=== PATIENT | female | born 1965 | race Caucasian/White ===

== ENCOUNTER 2018-07-01 14:12 | Emergency (ER) | payer BC, SELFPAY ==
[2018-07-01] VITALS (34 sets, daily range): BP systolic 71–133; BP diastolic 34–82; PULSE 68–86; RESP 11–29; TEMP 36.7; O2SAT 96–100
--- NOTE | 2018-07-01 14:37 | W.ED.GENAD ---
Discharge Plan Disposition Patient Disposition: HOME Condition: Stable Discharge Details Chief Complaint: Chest Pain Clinical Impression: Chest pain Primary Care Provider: Jose Toussaint ED Provider: Pietro Sommer Home Meds and New Rx's Prescriptions: Continued cyanocobalamin (vitamin B-12) [Vitamin B-12] 250 mcg Tablet 250 mcg PO DAILY RF: 0 zolpidem [Ambien] 10 mg Tablet 10 mg PO HS RF: 0 vitamin E 400 unit Capsule 400 unit PO DAILY RF: 0 cholecalciferol (vitamin D3) [Vitamin D3] 400 unit Capsule 400 unit PO DAILY RF: 0 omeprazole 20 mg Tablet,Delayed Release (Dr/Ec) 20 mg PO DAILY RF: 0 Discharge Instructions Instructions: Chest Pain (ED) Additional Instructions: your lab work here, ekg and chest cat scan did not show any concerning findings. Follow up with your primary care provider within a week and discuss having stress testing if you have severe worsening pain, vomit, or you become sweaty return to the emergency department for evaluation. Also return if you have trouble breathing Medical Decision Making 53 yo female comes in with chief complaint of left sided chest pain intermittently for 2 weeks. 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 Describes a burning sensation in left lateral chest and has pain with palpation. no lower extremity edema or calf pain. no pain with deep breathing. Her heart score is 2 based on age and risk factors, will obtain troponin. Will obtain d dimer as her wells score is low for Pe. No tearing back pain and normal vacular exam so doubt dissection. Clear lungs and no pleuritic pain so doubt ptx and no fevers or cough so doubt pna and do not feel xray indicated initial troponin negative, remains hd stable with no pain. Will obtain delta troponin. d dimer elevated, will obtain CTA to eval for PE CTA negative, second troponin negative. Walking without symptoms in no distress. given low heart score feel she is appropriate for outpatient management. ADvised f/u with pcp and return precautions given Differential Diagnosis nstemi, pe, dissection, chest wall strain Imaging Data Radiologic Study: Attestation: I personally reviewed and interpreted this imaging study as follows: Imaging: CT Scan Radiologist's impression: IMPRESSION: No CTA evidence of pulmonary embolism. Lab Data Lab results reviewed: Yes I reviewed the patient's lab results. ECG Data Attestation: I personally reviewed and interpreted this ECG (s) as follows: Prior ECG tracings: not available for review Interpretation: sinus rhythm, rate of 80, pr 144, no acute st t wave changes HPI General Mode of arrival: ambulatory. Date/Time Provider Initiated Documentation: 07/01/18 14:26. Limitations to Documentation: no limitations. History of Present Illness 53 year old F presents to the emergency department with the chief complaint of chest pain, described as mild, with intensity rated at 2. Quality is described as burning, and is localized to the chest. Patient reports no radiation. Patient started experiencing this week(s) (2) and it has been intermittent. No relieving factors improve symptom(s), No exacerbating factors reported . Patient notes no other symptoms.. Patient did receive the following treatments prior to arrival, none Related Data Home Medications Medication Instructions Recorded Confirmed cholecalciferol (vitamin D3) 400 unit PO DAILY 07/01/18 07/01/18 [Vitamin D3] cyanocobalamin (vitamin B-12) 250 mcg PO DAILY 07/01/18 07/01/18 [Vitamin B-12] omeprazole 20 mg PO DAILY 07/01/18 07/01/18 vitamin E 400 unit PO DAILY 07/01/18 07/01/18 zolpidem [Ambien] 10 mg PO HS 07/01/18 07/01/18 Allergies Allergy/AdvReac Type Severity Reaction Status Date / Time No Known Allergies Allergy Unverified 07/01/18 14:26 General Stated Complaint: Chest Pain ALEX: 2 Review of Systems Review of Systems All systems reviewed & are unremarkable except as noted in HPI and below Constitutional Denies chills, Denies fever(s) and Denies weakness ENT Denies change in voice Cardiovascular Denies dyspnea Respiratory Denies dyspnea Gastrointestinal Denies abdominal pain, Denies nausea and Denies vomiting Genitourinary Denies dysuria Integumentary/Breasts Denies rash Neurologic Denies weakness [facility] Social History Smoking/Tobacco Use Status: Former Tobacco Use Exam Const General: no acute distress Orientation: alert HENVA Head: normal to inspection Ears: external ears normal General nose exam: external nose normal Mouth: moist mucous membranes Eyes General: appearance normal, both eyes and all related structures Neck Neck: normal visual inspection Resp Effort & Inspection: normal respiratory effort and able to speak in complete sentences Cardio Rate: regular rate Skin General skin exam: no rashes or lesions noted Neuro General: alert and oriented x3 Extrem General: normal to inspection Psych Mental Status: mental status grossly normal Course Vital Signs Temperature 36.7 C 07/01/18 14:23 Pulse 76 07/01/18 14:23 Respiratory Rate 22 07/01/18 14:23 Blood Pressure 125/51 L 07/01/18 14:23 Pulse Oximetry 98 07/01/18 14:23 Temperature 36.7 C 07/01/18 14:23 Temperature Source Temporal Artery Scan 07/01/18 14:23 Pulse 76 07/01/18 14:23 Respiratory Rate 22 07/01/18 14:23 Respiratory Effort Non-Labored 07/01/18 14:30 Blood Pressure 125/51 L 07/01/18 14:23 Blood Pressure Position Supine 07/01/18 14:23 Pulse Oximetry 98 07/01/18 14:23 Oxygen Delivery Method Room Air 07/01/18 14:23 Oxygen Flow Rate 0 07/01/18 14:23 Pain Level 3 07/01/18 14:23
[2018-07-01 14:43] LABS: Abs Immature Grans 0.01 k/cumm (0.0-0.09); Absolute Basophil Count 0.02 k/cumm (0.0-0.2); Absolute Eosinophil Count 0.14 k/cumm (0.0-0.7); Absolute Lymphocyte Count 1.83 k/cumm (1.2-3.4); Absolute Monocyte Count 0.57 k/cumm (0.11-0.7); Absolute Neutrophil Count 4.11 k/cumm (1.2-6.7); Basophils % 0.3; Eosinophils % 2.1; HCT 37.9 % (36.0-46.0); HGB 12.8 g/dL (12.0-15.5); Immature Grans % 0.1; Lymphocytes % 27.4; Mean Corp. HGB Concentration 33.8 g/dL (32.0-36.0); Mean Corpuscular Hemoglobin 29.2 pg (27.0-33.0); Mean Corpuscular Volume 86.3 fL (80-95); Mean Platelet Volume 11.4 fL (8.0-11.0); Monocytes % 8.5; Neutrophils % 61.6; Platelet Count 174 x1000/uL (130-400); RBC 4.39 m/cumm (4.00-5.20); White Blood Cell Count 6.68 k/cumm (4.4-10.8)
--- NOTE | 2018-07-01 14:45 | ED.GENADUL_ITS ---
Discharge Plan Disposition Patient Disposition: HOME Condition: Stable Discharge Details Chief Complaint: Chest Pain Clinical Impression: Chest pain Primary Care Provider: Jose Toussaint ED Provider: Pietro Sommer Home Meds and New Rx's Prescriptions: Continued cyanocobalamin (vitamin B-12) [Vitamin B-12] 250 mcg Tablet 250 mcg PO DAILY RF: 0 zolpidem [Ambien] 10 mg Tablet 10 mg PO HS RF: 0 vitamin E 400 unit Capsule 400 unit PO DAILY RF: 0 cholecalciferol (vitamin D3) [Vitamin D3] 400 unit Capsule 400 unit PO DAILY RF: 0 omeprazole 20 mg Tablet,Delayed Release (Dr/Ec) 20 mg PO DAILY RF: 0 Discharge Instructions Instructions: Chest Pain (ED) Additional Instructions: your lab work here, ekg and chest cat scan did not show any concerning findings. Follow up with your primary care provider within a week and discuss having stress testing if you have severe worsening pain, vomit, or you become sweaty return to the emergency department for evaluation. Also return if you have trouble breathing Medical Decision Making 53 yo female comes in with chief complaint of left sided chest pain intermittently for 2 weeks. 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 Describes a burning sensation in left lateral chest and has pain with palpation. no lower extremity edema or calf pain. no pain with deep breathing. Her heart score is 2 based on age and risk factors, will obtain troponin. Will obtain d dimer as her wells score is low for Pe. No tearing back pain and normal vacular exam so doubt dissection. Clear lungs and no pleuritic pain so doubt ptx and no fevers or cough so doubt pna and do not feel xray indicated initial troponin negative, remains hd stable with no pain. Will obtain delta troponin. d dimer elevated, will obtain CTA to eval for PE CTA negative, second troponin negative. Walking without symptoms in no distress. given low heart score feel she is appropriate for outpatient management. ADvised f/u with pcp and return precautions given Differential Diagnosis nstemi, pe, dissection, chest wall strain Imaging Data Radiologic Study: Attestation: I personally reviewed and interpreted this imaging study as follows: Imaging: CT Scan Radiologist's impression: IMPRESSION: No CTA evidence of pulmonary embolism. Lab Data Lab results reviewed: Yes I reviewed the patient's lab results. ECG Data Attestation: I personally reviewed and interpreted this ECG (s) as follows: Prior ECG tracings: not available for review Interpretation: sinus rhythm, rate of 80, pr 144, no acute st t wave changes HPI General Mode of arrival: ambulatory . Date/Time Provider Initiated Documentation: 07/01/18 14:26 . Limitations to Documentation: no limitations . History of Present Illness 53 year old F presents to the emergency department with the chief complaint of chest pain, described as mild, with intensity rated at 2. Quality is described as burning, and is localized to the chest. Patient reports no radiation. Patient started experiencing this week(s) (2) and it has been intermittent. No relieving factors improve symptom(s), No exacerbating factors reported . Patient notes no other symptoms.. Patient did receive the following treatments prior to arrival, none Related Data Home Medications Medication Instructions Recorded Confirmed cholecalciferol (vitamin D3) 400 unit PO DAILY 07/01/18 07/01/18 [Vitamin D3] cyanocobalamin (vitamin B-12) 250 mcg PO DAILY 07/01/18 07/01/18 [Vitamin B-12] omeprazole 20 mg PO DAILY 07/01/18 07/01/18 vitamin E 400 unit PO DAILY 07/01/18 07/01/18 zolpidem [Ambien] 10 mg PO HS 07/01/18 07/01/18 Allergies Allergy/AdvReac Type Severity Reaction Status Date / Time No Known Allergies Allergy Unverified 07/01/18 14:26 General Stated Complaint: Chest Pain ALEX: 2 Review of Systems Review of Systems All systems reviewed & are unremarkable except as noted in HPI and below Constitutional Denies chills, Denies fever(s) and Denies weakness ENT Denies change in voice Cardiovascular Denies dyspnea Respiratory Denies dyspnea Gastrointestinal Denies abdominal pain, Denies nausea and Denies vomiting Genitourinary Denies dysuria Integumentary/Breasts Denies rash Neurologic Denies weakness [facility] Social History Smoking/Tobacco Use Status: Former Tobacco Use Exam Const General: no acute distress Orientation: alert HENMA Head: normal to inspection Ears: external ears normal General nose exam: external nose normal Mouth: moist mucous membranes Eyes General: appearance normal, both eyes and all related structures Neck Neck: normal visual inspection Resp Effort & Inspection: normal respiratory effort and able to speak in complete sentences Cardio Rate: regular rate Skin General skin exam: no rashes or lesions noted Neuro General: alert and oriented x3 Extrem General: normal to inspection Psych Mental Status: mental status grossly normal Course Vital Signs Temperature 36.7 C 07/01/18 14:23 Pulse 76 07/01/18 14:23 Respiratory Rate 22 07/01/18 14:23 Blood Pressure 125/51 L 07/01/18 14:23 Pulse Oximetry 98 07/01/18 14:23 Temperature 36.7 C 07/01/18 14:23 Temperature Source Temporal Artery Scan 07/01/18 14:23 Pulse 76 07/01/18 14:23 Respiratory Rate 22 07/01/18 14:23 Respiratory Effort Non-Labored 07/01/18 14:30 Blood Pressure 125/51 L 07/01/18 14:23 Blood Pressure Position Supine 07/01/18 14:23 Pulse Oximetry 98 07/01/18 14:23 Oxygen Delivery Method Room Air 07/01/18 14:23 Oxygen Flow Rate 0 07/01/18 14:23 Pain Level 3 07/01/18 14:23
[2018-07-01] MEDS: Aspirin 81 MG CHEW 324 MG CH (14:54)
[2018-07-01 14:59] LABS: ALT 44 U/L (12-78); AST 26 U/L (15-37); Albumin 3.6 g/dL (3.4-5.0); Alkaline Phosphatase 83 U/L (46-116); Anion Gap 8.4 mmol/L (3-11); BUN 25 mg/dL (7-18); Bilirubin, Total 0.4 mg/dL (0.2-1.0); CO2 29.6 mmol/L (21.0-32.0); CREATININE 0.75 mg/dL (0.55-1.02); Chloride 104 mmol/L (98-107); Glucose 119 mg/dL (70-100); Magnesium 1.7 mg/dL (1.8-2.4); Potassium 3.2 mmol/L (3.5-5.1); Sodium 142 mmol/L (136-145); Total Protein 7.1 g/dL (6.4-8.2); Troponin I < 0.02 ng/mL (0.00-0.06)
[2018-07-01 15:10] LABS: PTT Activated 22.5 sec (21.0-31.4); Prothrombin Time 9.6 sec (9.3-11.0)
[2018-07-01 15:22] LABS: D-Dimer 672 ng/mlFEU (<500)
--- NOTE | 2018-07-01 15:24 | DI.CT_ITS ---
SYMPTOM/DIAGNOSIS: CHEST PAIN LEFT SIDE WITH ELEVATED D-DIMER. PE CT: CT angiography was performed with multi slice acquisition and multi planar and 3D reconstruction. This study was conducted according to the usual protocol with the intravenous administration of 97.3 cc of Omnipaque 350. There is no evidence of PE. There is no evidence of an aortic aneurysm. No pulmonary infiltrates or pulmonary mass is identified. There is no evidence of an aortic aneurysm or aortic dissection or leak. There is no pleural effusion or pneumothorax. The heart is unremarkable. There is no evidence of a pericardial effusion. There is no evidence of lymphadenopathy. No acute osseous lesion or lesions are identified. There is no evidence of a fracture. The soft tissues are unremarkable. SUMMARY: There is no evidence of PE.
[2018-07-01] MEDS: Omnipaque 350 MG/ML 100 ML BTL IJ (15:50)
--- NOTE | 2018-07-01 16:29 | DI.VRAD_ITS ---
EXAM: CT Angiography Chest With Contrast EXAM DATE/TIME: 07/01/2018 3:51 PM CLINICAL HISTORY: 53 years old, female; Pain; Chest pain; Left-sided chest pain; Patient HX: Chest pain on the left side w/elevated d-dimer TECHNIQUE: Axial computed tomographic angiography images of the chest with intravenous contrast using CT angiography protocol. All CT scans at this facility use at least one of these dose optimization techniques: automated exposure control; mA and/or kV adjustment per patient size (includes targeted exams where dose is matched to clinical indication); or iterative reconstruction. Coronal and sagittal reformatted images were created and reviewed. MIP reconstructed images were created and reviewed. CONTRAST: 100 ml of omni administered intravenously. COMPARISON: No relevant prior studies available. FINDINGS: Pulmonary arteries: No filling defects within the main, lobar, segmental, and subsegmental pulmonary arterial branches. Aorta: No aortic aneurysm. No evidence of dissection. Lungs: No focal areas of consolidation. Pleural space: No pleural effusion or pneumothorax. Heart: Unremarkable. No pericardial effusion. Lymph nodes: No enlarged lymph nodes. Bones/joints: No acute osseus lesion or fracture. Soft tissues: Unremarkable. IMPRESSION: No CTA evidence of pulmonary embolism. Dictated and Authenticated by: Umesh Garza MD. Ordering:JORGITO Westbrook MD
[2018-07-01] MEDS: Normal Saline Flush 10 ML SYR IVP (17:09)
[2018-07-01 17:49] LABS: Troponin I 0.02 ng/mL (0.00-0.06)
== END 2018-07-01 18:06 | disposition home or self-care (01) ==
PROVIDERS: Emergency Provider Emergency Medicine; PCP Internal Medicine
DX: R07.9 Chest pain, unspecified (principal)
CPT/HCPCS: 36415; 71275; 80053; 93005; 99285; 83735; 84484; 85025; 85379; 85610; 85730; 93010; J3490

== ENCOUNTER 2022-08-22 06:59 | Day surgery (SDC) | payer BC, SELFPAY ==
[2022-08-22 07:22] VITALS: BP 130/91; PULSE 78; RESP 16; TEMP 36.4; O2SAT 95
[2022-08-22] MEDS: Tropicam./Phenyleph. (1/2.5%) 5 ML BTL OS ×3 (07:31→07:41)
--- NOTE | 2022-08-22 07:41 | W.ANESPRE ---
General Info Date of Service Date Performed: 08/22/22 Height: 5 ft 7 in Weight: 114.1 kg Body Mass Index (BMI): 39.4 Surgical Procedure: Operation Date: 08/22/22 08:40 Proposed Procedure Side Surgeon p Cataract Extraction with IOL Implant Left Mohit Henderson MD Meds Allergies and Home Medications Allergies Allergy/AdvReac Type Severity Reaction Status Date / Time No Known Allergies Allergy Verified 08/22/22 07:19 Home Medication Medication Instructions Recorded cholecalciferol (vitamin D3) 10 400 unit PO DAILY 07/01/18 mcg (400 unit) capsule (Vitamin D3) cyanocobalamin (vitamin B-12) 250 250 mcg PO DAILY 07/01/18 mcg tablet (Vitamin B-12) omeprazole 20 mg tablet,delayed 20 mg PO DAILY 07/01/18 release zolpidem 10 mg tablet (Ambien) 10 mg PO HS 07/01/18 gabapentin 300 mg tablet 300 mg PO DIRECTED 08/19/22 hydrochlorothiazide 12.5 mg tablet 12.5 mg PO DAILY 08/19/22 lisinopril 20 mg tablet 20 mg PO DAILY 08/19/22 lorazepam 1 mg tablet 1 mg PO DAILY 08/19/22 multivitamin 1 tab PO DAILY 08/19/22 Current Visit Medications: Current Medications Generic Name Dose Route Start Last Admin Trade Name Freq PRN Reason Stop Dose Admin Acetaminophen 1,000 mg 08/22/22 06:00 Acetaminophen 500 Mg Tab PO Q4H PRN PRN Miscellaneous Medication 0 ml 08/22/22 06:00 08/22/22 07:36 Tropicam./Phenyleph. (1/2.5%) 5 Ml Btl OS 1 drp DIRECTED DAYANA Administration Miscellaneous Medication 0 ml 08/22/22 06:00 Prednisolone 1%, Moxifloxacin 0.5%, Nepafenac 0.1% 5ml Btl OS DIRECTED DAYANA Tetracaine HCl 0 ml 08/22/22 06:00 Tetracaine 0.5% 4 Ml Btl OS DIRECTED [facility] PFSH Medical History Medical History Anxiety GERD (gastroesophageal reflux disease) HTN (hypertension) Insomnia Internal derangement of knee Lichen sclerosus et atrophicus Lumbar radiculopathy Rosacea Surgical History Surgical History H/O decompression of ulnar nerve History of breast biopsy History of laparoscopy DIAGNOSTIC Hx of appendectomy Hx of colonoscopy Hx of hernia repair Tobacco Smoking/Tobacco Use Status: Former Tobacco Use Alcohol Alcohol Intake: never Substance Use Substance use: Never Substance use type: does not use Vital Signs and Lab Results Vital Signs Most Recent Vital Signs in EMR: Most Recent Vital Signs Temp Pulse Resp BP Pulse Ox 36.4 C L 78 16 130/91 H 95 08/22/22 07:22 08/22/22 07:22 08/22/22 07:22 08/22/22 07:22 08/22/22 07:22 Lab Results Blood Type / Crossmatch: No Data to Display Complete Blood Count: No Data to Display Complete Metabolic Panel: No Data to Display Liver Function Panel: No Data to Display Coagulation Panel: No Data to Display Cardiac Panel: No Data to Display Arterial Blood Gas: No Data to Display Venous Blood Gas: No Data to Display Pancreas Panel: No Data to Display Thyroid Panel: No Data to Display Infectious Disease: No Data to Display Blood Cultures: No Data to Display Toxicology Panel: No Data to Display Anesthesia Assessment and Plan Anesthesia History Personal History: No History of Anesthesia Complications Family History: No Family History of Anesthesia Complications Exercise Tolerance Exercise Tolerance: Metabolic Equivalents>4 Pertinent Negatives Pertinent Negatives: No Symptoms of GERD Cardiac & Pulmonary Exam Cardiac Exam: Normal S1/S2 Heart Sounds Pulmonary Exam: Clear Bilateral Breath Sounds Implantable Cardiac Device Does patient have a Pacemaker or an ICD?: No Airway Exam Known Difficult Airway: No Mallampati Class: 2 Mouth Opening: Normal (> 3cm) Thyromental Distance: Greater than 3 cm Neck Range of Motion: Full ROM Neck Circumference: Normal Teeth Condition: Removable Dentures/Plates Upper ASA Classification ASA Score: ASA 2 Emergency Case?: No NPO Status NPO Status: NPO Clears >2 hours, Solids >8 hours Anesthesia Plan Resuscitation Status: Full Code Anesthesia Technique: MAC Anesthesia Airway Planned: Natural Airway Monitors Used: Standard Monitors
[2022-08-22 08:00] VITALS: BMI 39.4
[2022-08-22] MEDS: Tetracaine 0.5% 4 ML BTL OS (08:17)
[2022-08-22] MEDS: Lidocaine 1% Pres-Free 5 ML VIAL (08:18)
[2022-08-22] MEDS: Balanced Salt Soln.-PLUS 500 ML BAG (08:18)
[2022-08-22] MEDS: Duovisc Viscoelastic System EACH 1 EACH (08:20)
[2022-08-22] MEDS: Povidone-Iodine Ophth 30 ML BTL (08:20)
[2022-08-22] MEDS: Lidocaine 2% Jelly 6 ML SYR (08:20)
[2022-08-22 08:33] VITALS: BP 109/69; PULSE 72; RESP 18; TEMP 36.5; O2SAT 97
--- NOTE | 2022-08-22 08:34 | W.PM.DSUDISC ---
Date of service: 08/22/22 Time of Service: 08:34 Discharge Plan Disposition Patient Disposition: Home Discharge Details Attending Provider: Mohit Henderson Primary Care Provider: Jose Toussaint Home Meds and New Rx's Prescriptions: No Action cyanocobalamin (vitamin B-12) [Vitamin B-12] 250 mcg Tablet 250 mcg PO DAILY zolpidem [Ambien] 10 mg Tablet 10 mg PO HS cholecalciferol (vitamin D3) [Vitamin D3] 400 unit Capsule 400 unit PO DAILY omeprazole 20 mg Tablet,Delayed Release (Dr/Ec) 20 mg PO DAILY multivitamin Tablet 1 tab PO DAILY lisinopril 20 mg Tablet 20 mg PO DAILY lorazepam 1 mg Tablet 1 mg PO DAILY gabapentin 300 mg Tablet 300 mg PO DIRECTED hydrochlorothiazide 12.5 mg Tablet 12.5 mg PO DAILY Discharge Instructions Stand Alone Forms: Post-op Topical Cataract, Brendan Cappsey (DSU) Discharge Orders Discharge Orders: Discharge Order (Routine); Ordered 08/22/22 Ordered By: Mohit Henderson DS: Diagnosis Discharge Diagnosis (1) Posterior subcapsular age-related cataract of left eye: Status: Resolved (2) Cortical cataract of left eye: Status: Resolved
--- NOTE | 2022-08-22 08:35 | ROE_ITS ---
Date of service: 08/22/22 Time of Service: 08:35 Operative Note Operative Note DATE OF PROCEDURE: 08/22/22 PRE-OP DIAGNOSIS: Cortical/posterior subcapsular cataract, left eye POST-OP DIAGNOSIS: same PROCEDURE: Cataract extraction using phacoemulsification with intraocular lens implant, left eye SURGEON: Mohit Henderson ANESTHESIA TYPE: Local By Surgeon and MAC Refer to Anesthesia Record PATHOLOGY: none sent COMPLICATIONS: None Patient was transported to: same day Patient's condition: stable Implants: Frankie Clareon [id number] Indications: Progressive decreased vision due to cataract, left eye Procedure Description: CATARACT SURGERY OPERATIVE REPORT PREOPERATIVE DIAGNOSIS: Cortical/posterior subcapsular cataract, left eye POSTOPERATIVE DIAGNOSIS: Same OPERATION: Cataract extraction using phacoemulsification with posterior chamber intraocular lens implant, left eye. IOL: IOL Hostess Party Sales Representative/Model: Frankie Clareon [id number] IOL Power: + 22.0 diopters IOL Serial Number: [id number] Optic Diameter: 6.0mm Haptic/Overall Diameter: 13.0mm PHACO INFO: FrankieEnders Fundurion Vision System with OZil and Active Fluidics Cumulative Dispersed Energy (CDE): 3.27 seconds SURGEON: Mohit Henderson MD, [place] ANESTHESIA: Monitored Anesthesia Care (MAC), with local sub-tenon's anesthetic infiltration COMPLICATIONS: None SPECIMENS: None INDICATIONS FOR PROCEDURE: The patient is a 57-year-old lady with history of diminished visual acuity in her left eye secondary to the development of cortical/posterior subcapsular cataract. PROCEDURE: The correct surgical eye was identified and marked as the left eye and the pupil was dilated in the preoperative area using mydriatics and cycloplegics. The dilated pupil size was 7.0 mm. Oral sedation was administered in the form of an Imprimis MKO Melt (midazolam 3mg/ketamine 25mg/ondansetron 2mg). The patient was brought to the operating room where cardiopulmonary monitoring was instituted and surgical time-out was performed, confirming the correct operative eye and IOL power. Topical anesthesia was administered and ophthalmic povidone-iodine 5% was instilled into the conjunctival fornices. Lidocaine gel was applied to the cornea and the madison-ocular area was prepped with Betadine 10% solution and draped in the usual sterile fashion for intraocular surgery, including an aperture drape. A Tegaderm transparent film dressing was cut in half and used to cover the lashes and lid margins. Care was taken to sequester the lashes and lid margins under the Tegaderm dressing. A lid speculum was placed between the lids of the operative eye and the Frankie LuxOR Revalia operating microscope was maneuvered into position. Torres scissors were then used to make a conjunctival buttonhole approximately 6mm posterior to the limbus in the inferonasal quadrant. Blunt dissection was carried out to expose bare sclera, and a blunt-tipped sub-tenon?s anesthesia cannula was introduced and passed posteriorly along the globe where non- preserved plain lidocaine was injected into posterior sub-Tenon?s space. A sideport knife was used to make a paracentesis port superior/superiortemporally. Intraocular phenylephrine/lidocaine was injected into the anterior chamber. The anterior chamber was then filled with viscoelastic. A keratome knife was used construct a two-plane near-clear corneal tunnel extending 2.0mm into clear cornea in the temporal position. . A flap was raised on the anterior capsule and capsulorhexis forceps were used to complete a continuous curvilinear capsulorhexis of 5.0 mm. Balanced salt solution was then used to perform cortical cleaving hydrod issection and nuclear hydrodelineation until the lens could be freely rotated within the capsular bag. The lens nucleus was then disassembled and removed within the capsular bag and iris plane using phacoemulsification. Residual cortical material was removed using the 45-degree angled silicone I/A tip with 0.3mm port. The posterior capsule was carefully polished to remove as much residual lens epithelial cells as safely possible. The capsular bag was then inflated and the anterior chamber deepened with viscoelastic. The lens implant described above was inserted into the capsular bag using the Frankie Autonome Injector. A Kuglen hook was used to dial the IOL into position. Residual viscoelastic was then removed first from posterior to the IOL, then from the anterior chamber using the I/A handpiece. The lens implant was noted to center nicely within the capsular bag. The incisions were stromally hydrated, and the anterior chamber was reformed using BSS. Then 0.5cc of moxifloxacin 1 .0mg/ml were injected into the capsular bag and anterior chamber. The incisions were checked with a Weck spear and found to be secure. Several drops of ophthalmic povidone-iodine 5% were then applied to the eye followed by two drops of Imprimis combination prednisolone/moxifloxacin/nepafenac solution. The drapes were removed and a clear plastic protective eye shield was placed over the eye. The patient was then returned to [facility] in stable condition.
--- NOTE | 2022-08-22 08:48 | W.ANESPOSTOP ---
Postoperative Evaluation Date, Time and Location Date Performed: 08/22/22 Time Performed: 08:40 Patient Location: Day Surgery Unit Vital Signs Most Recent Imported Vital Signs: Most Recent Vital Signs Temp Pulse Resp BP Pulse Ox 36.5 C 72 18 109/69 97 08/22/22 08:33 08/22/22 08:33 08/22/22 08:33 08/22/22 08:33 08/22/22 08:33 Pain Score Most Recent Pain Score: Most Recent Pain Score Pain Level 0 08/22/22 07:22 Assessment Mental Status: Awake (Alert & Oriented to Patient Baseline) Airway and Respiratory Function: Patent airway with normal (patient baseline) respiratory exam Cardiovascular Function: Hemodynamically Stable Hydration Status: Adequately Hydrated Nausea & Vomiting: No Nausea or Vomiting Pain: Pt. Denies Any Pain Peripheral Nerve Block: Patient did not receive a nerve block
[2022-08-22 09:02] VITALS: BP 118/68; PULSE 70; RESP 18; TEMP 36.3; O2SAT 98
== END 2022-08-22 09:08 | disposition home or self-care (01) ==
LOC: SUR 06:59
PROVIDERS: PCP Internal Medicine; Visit Provider Ophthalmology
PROC: (CPT 66984; principal; 2022-08-22 08:30)
DX: H25.042 Posterior subcapsular polar age-related cataract, left eye (principal)
CPT/HCPCS: 66984; V2632